=== PATIENT | male | born 1985 | race Caucasian/White ===

== ENCOUNTER 2017-11-10 19:34 | Emergency (ER) | payer SELFPAY ==
[2017-11-10 20:15] LABS: ADD MAN DIFF? NO
[2017-11-10 20:18] LABS: BASO % 1 % (0-3); EOS # 0.4 x10^3/uL (0.0-0.7); EOS % 7 % (0-3); HEMATOCRIT 43.4 % (39.0-53.0); HEMOGLOBIN 14.3 g/dL (13.0-17.5); LYMPH # 1.7 x10^3/uL (1.0-4.8); LYMPH % 29 % (24-48); MEAN CORPUSCULAR HEMOGLOBIN 30 pg (25-35); MEAN CORPUSCULAR HGB CONC 33 g/dL (31-37); MEAN CORPUSCULAR VOLUME 90 fL (79-100); MONO # 0.5 x10^3/uL (0.0-1.1); MONO % 8 % (0-9); NEUT # 3.3 x10^3uL (1.8-7.7); NEUT % 55 % (31-73); PLATELET COUNT 213 x10^3/uL (140-400); RED BLOOD COUNT 4.85 x10^6/uL (4.30-5.70); RED CELL DISTRIBUTION WIDTH 13.5 % (11.5-14.5)
[2017-11-10 20:30] LABS: ANION GAP 4 (6-14); BLOOD UREA NITROGEN 26 mg/dL (8-26); BUN/CREATININE RATIO 22 (6-20); CALCIUM 8.6 mg/dL (8.5-10.1); CARBON DIOXIDE 31 mmol/L (21-32); CHLORIDE 107 mmol/L (98-107); CREATININE 1.2 mg/dL (0.7-1.3); GFR 70.2; GLUCOSE 60 mg/dL (70-99); POTASSIUM 4.3 mmol/L (3.5-5.1); SODIUM 142 mmol/L (136-145)
[2017-11-10] MEDS: ONDANSETRON PF 4 MG/2 ML VIAL. IV (20:33)
[2017-11-10] MEDS: fentaNYL PF VIAL 100 MCG/2 ML VIAL IV ×2 (20:34→21:08)
[2017-11-10 20:35] LABS: ALBUMIN 3.4 g/dL (3.4-5.0); ALK PHOS 148 U/L (46-116); ALT (SGPT) 32 U/L (16-63); AST (SGOT) 29 U/L (15-37); LIPASE 177 U/L (73-393); TOTAL BILIRUBIN 0.4 mg/dL (0.2-1.0); TOTAL PROTEIN 6.9 g/dL (6.4-8.2)
[2017-11-10] MEDS ORDERED: CONTRAST GIVEN MC (20:45)
[2017-11-10] MEDS: IOHEXOL 300 MG/ML 100ML VIAL. IV (20:50)
[2017-11-10 20:57] LABS: BILIRUBIN,URINE NEGATIVE (NEG); CLARITY,URINE CLEAR; COLOR,URINE YELLOW; GLUCOSE,URINE NEGATIVE (NEG); NITRITE,URINE NEGATIVE (NEG); PROTEIN,URINE NEGATIVE (NEG-TRACE)
[2017-11-10 21:07] LABS: BACTERIA,URINE 0 /HPF (0-FEW); RBC,URINE TNTC /HPF (0-2)
[2017-11-10] MEDS: MORPHINE SULFATE 4 MG/ML DISP.SYRIN. IV (21:35)
== END 2017-11-10 22:06 | disposition home or self-care (01) ==
LOC: ER 19:34
DX: R10.13 Epigastric pain (principal); R31.9 Hematuria, unspecified; F41.9 Anxiety disorder, unspecified; F31.9 Bipolar disorder, unspecified; Z86.19 Personal history of other infectious and parasitic diseases; Z90.49 Acquired absence of other specified parts of digestive tract; Z88.5 Allergy status to narcotic agent
CPT/HCPCS: 36415; 74177; 80053; 81001; 83690; 85025; 87086; 96374; 96375; 96376; 99285-25; J2270; J2405; J3010; Q9967

== ENCOUNTER 2017-11-20 15:51 | Emergency (ER) | payer SELFPAY ==
[2017-11-20] MEDS: IV NORMAL SALINE 1000ML BAG 1,000 ML IV (16:55)
[2017-11-20] MEDS: PANTOPRAZOLE IV PUSH 40 MG VIAL. IVP (16:55)
[2017-11-20] MEDS: fentaNYL PF VIAL 100 MCG/2 ML VIAL IV (16:56)
[2017-11-20] MEDS: PROMETHAZINE 12.5 MG in IV NORMAL SALINE 50ML 50 ML IV (16:56)
[2017-11-20] MEDS: LIDO:MAALOX:DONNATAL 1:1:1 15 ML SINGLE DOSE SWSW (16:56)
[2017-11-20 17:07] LABS: ADD MAN DIFF? NO
[2017-11-20 17:11] LABS: BASO # 0.1 x10^3/uL (0.0-0.2); BASO % 2 % (0-3); EOS # 0.5 x10^3/uL (0.0-0.7); EOS % 8 % (0-3); HEMATOCRIT 44.3 % (39.0-53.0); LYMPH # 1.9 x10^3/uL (1.0-4.8); LYMPH % 27 % (24-48); MEAN CORPUSCULAR HEMOGLOBIN 30 pg (25-35); MEAN CORPUSCULAR HGB CONC 34 g/dL (31-37); MEAN CORPUSCULAR VOLUME 89 fL (79-100); MONO # 0.5 x10^3/uL (0.0-1.1); MONO % 7 % (0-9); NEUT # 4.1 x10^3uL (1.8-7.7); NEUT % 57 % (31-73); PLATELET COUNT 271 x10^3/uL (140-400); RED CELL DISTRIBUTION WIDTH 13.8 % (11.5-14.5); WHITE BLOOD COUNT 7.2 x10^3/uL (4.0-11.0)
[2017-11-20 17:20] LABS: ANION GAP 11 (6-14); BLOOD UREA NITROGEN 29 mg/dL (8-26); BUN/CREATININE RATIO 26 (6-20); CARBON DIOXIDE 25 mmol/L (21-32); CHLORIDE 106 mmol/L (98-107); CREATININE 1.1 mg/dL (0.7-1.3); GFR 77.6; GLUCOSE 125 mg/dL (70-99); POTASSIUM 3.9 mmol/L (3.5-5.1); SODIUM 142 mmol/L (136-145)
[2017-11-20 17:27] LABS: ALBUMIN 3.8 g/dL (3.4-5.0); ALBUMIN/GLOBULIN RATIO 1.2 (1.0-1.7); ALK PHOS 167 U/L (46-116); ALT (SGPT) 38 U/L (16-63); AST (SGOT) 24 U/L (15-37); LIPASE 256 U/L (73-393); TOTAL BILIRUBIN 0.1 mg/dL (0.2-1.0)
[2017-11-20] MEDS: FAMOTIDINE 20 MG TABLET. PO (18:11)
[2017-11-20] MEDS: HYDROcodone/APAP 5/325MG 1 TAB TABLET PO (18:29)
== END 2017-11-20 18:33 | disposition home or self-care (01) ==
LOC: ER 15:51
DX: R10.13 Epigastric pain (principal); R11.2 Nausea with vomiting, unspecified; F41.9 Anxiety disorder, unspecified; F31.9 Bipolar disorder, unspecified; Z86.19 Personal history of other infectious and parasitic diseases; Z90.49 Acquired absence of other specified parts of digestive tract; Z88.5 Allergy status to narcotic agent
CPT/HCPCS: 36415; 80053; 83690; 85025; 96365; 96375; 99284-25; C9113; J2550; J3010; J7030

== ENCOUNTER 2017-11-29 18:29 | Emergency (ER) | payer SELFPAY ==
[2017-11-29] MEDS ORDERED: KETOROLAC 30 MG/ML INJ. (19:22)
[2017-11-29] MEDS ORDERED: ONDANSETRON PF 4 MG/2 ML VIAL. (19:22)
[2017-11-29] MEDS: ONDANSETRON PF 4 MG/2 ML VIAL. IV (19:24)
[2017-11-29] MEDS: IV NORMAL SALINE 1000ML BAG 1,000 ML IV (19:24)
[2017-11-29] MEDS: KETOROLAC 30 MG/ML INJ. IV (19:24)
[2017-11-29 19:26] LABS: ADD MAN DIFF? NO
[2017-11-29 19:28] LABS: BASO # 0.1 x10^3/uL (0.0-0.2); BASO % 2 % (0-3); EOS # 0.4 x10^3/uL (0.0-0.7); EOS % 6 % (0-3); HEMATOCRIT 42.8 % (39.0-53.0); HEMOGLOBIN 14.6 g/dL (13.0-17.5); LYMPH # 1.9 x10^3/uL (1.0-4.8); LYMPH % 33 % (24-48); MEAN CORPUSCULAR HEMOGLOBIN 30 pg (25-35); MEAN CORPUSCULAR HGB CONC 34 g/dL (31-37); MEAN CORPUSCULAR VOLUME 89 fL (79-100); MONO # 0.7 x10^3/uL (0.0-1.1); MONO % 11 % (0-9); NEUT # 2.9 x10^3uL (1.8-7.7); NEUT % 48 % (31-73); PLATELET COUNT 323 x10^3/uL (140-400); RED BLOOD COUNT 4.82 x10^6/uL (4.30-5.70)
[2017-11-29 19:29] LABS: BILIRUBIN,URINE SMALL (NEG); CLARITY,URINE CLEAR; COLOR,URINE YELLOW; GLUCOSE,URINE NEGATIVE (NEG); NITRITE,URINE NEGATIVE (NEG); PROTEIN,URINE NEGATIVE (NEG-TRACE)
[2017-11-29 19:35] LABS: RBC,URINE 0 /HPF (0-2)
[2017-11-29 19:36] LABS: ANION GAP 7 (6-14); BACTERIA,URINE MODERATE /HPF (0-FEW); BLOOD UREA NITROGEN 24 mg/dL (8-26); BUN/CREATININE RATIO 22 (6-20); CALCIUM 8.9 mg/dL (8.5-10.1); CARBON DIOXIDE 28 mmol/L (21-32); CHLORIDE 107 mmol/L (98-107); CREATININE 1.1 mg/dL (0.7-1.3); GFR 77.6; GLUCOSE 99 mg/dL (70-99); POTASSIUM 3.9 mmol/L (3.5-5.1); SODIUM 142 mmol/L (136-145); SQUAMOUS EPITHELIAL CELL,UR FEW /LPF
[2017-11-29 19:42] LABS: ALBUMIN 3.8 g/dL (3.4-5.0); ALBUMIN/GLOBULIN RATIO 1.1 (1.0-1.7); ALK PHOS 141 U/L (46-116); ALT (SGPT) 41 U/L (16-63); AST (SGOT) 24 U/L (15-37); LIPASE 261 U/L (73-393); TOTAL BILIRUBIN 0.4 mg/dL (0.2-1.0); TOTAL PROTEIN 7.3 g/dL (6.4-8.2)
[2017-11-29] MEDS ORDERED: fentaNYL PF VIAL 100 MCG/2 ML VIAL (19:49)
[2017-11-29 19:51] LABS: BARBITURATES NEG (NEG); BENZODIAZEPINES NEG (NEG); CANNABINOIDS NEG (NEG); COCAINE NEG (NEG); METHADONE NEG (NEG); OPIATES NEG (NEG); PHENCYCLIDINE NEG (NEG)
[2017-11-29 19:52] LABS: AMPHETAMINE/METHAMPHETAMINE POS (NEG); ETHANOL, URINE NEG (NEG)
[2017-11-29] MEDS: fentaNYL PF VIAL 100 MCG/2 ML VIAL IV ×2 (19:52→20:42)
== END 2017-11-29 20:52 | disposition home or self-care (01) ==
LOC: ER 18:29
DX: R10.13 Epigastric pain (principal); N39.0 Urinary tract infection, site not specified; F41.9 Anxiety disorder, unspecified; F31.9 Bipolar disorder, unspecified; Z90.49 Acquired absence of other specified parts of digestive tract; Z86.19 Personal history of other infectious and parasitic diseases; Z88.5 Allergy status to narcotic agent
CPT/HCPCS: 36415; 80053; 80307; 81001; 83690; 85025; 87086; 87491; 87591; 96361; 96374; 96375; 96376; 99284-25; J1885; J2405; J3010; J7030

== ENCOUNTER 2018-01-02 22:15 | Emergency (ER) | payer SELFPAY | END 2018-01-02 22:50 | disposition home or self-care (01) | LOC: ER 22:15 | DX: K02.9 Dental caries, unspecified (principal); F41.9 Anxiety disorder, unspecified; F31.89 Other bipolar disorder; Z90.49 Acquired absence of other specified parts of digestive tract; Z88.5 Allergy status to narcotic agent | CPT/HCPCS: 99283 ==

== ENCOUNTER 2018-04-11 15:14 | Emergency (ER) | payer SELFPAY ==
[2018-04-11] MEDS: ONDANSETRON ODT 4 MG TAB.RAPDIS. PO (17:33)
[2018-04-11] MEDS: LIDO:MAALOX 1:1 20 ML SINGLE DOSE. SWSW (17:47)
[2018-04-11 17:50] LABS: ADD MAN DIFF? NO
[2018-04-11 17:54] LABS: BASO # 0.1 x10^3/uL (0.0-0.2); BASO % 1 % (0-3); EOS # 0.3 x10^3/uL (0.0-0.7); EOS % 5 % (0-3); HEMATOCRIT 38.8 % (39.0-53.0); HEMOGLOBIN 12.9 g/dL (13.0-17.5); LYMPH # 1.6 x10^3/uL (1.0-4.8); LYMPH % 24 % (24-48); MEAN CORPUSCULAR HEMOGLOBIN 28 pg (25-35); MEAN CORPUSCULAR HGB CONC 33 g/dL (31-37); MEAN CORPUSCULAR VOLUME 84 fL (79-100); MONO # 0.7 x10^3/uL (0.0-1.1); MONO % 11 % (0-9); NEUT # 3.8 x10^3uL (1.8-7.7); NEUT % 59 % (31-73); PLATELET COUNT 278 x10^3/uL (140-400); RED BLOOD COUNT 4.61 x10^6/uL (4.30-5.70); RED CELL DISTRIBUTION WIDTH 14.1 % (11.5-14.5); WHITE BLOOD COUNT 6.5 x10^3/uL (4.0-11.0)
[2018-04-11 18:04] LABS: ANION GAP 11 (6-14); BLOOD UREA NITROGEN 22 mg/dL (8-26); BUN/CREATININE RATIO 17 (6-20); CALCIUM 8.8 mg/dL (8.5-10.1); CARBON DIOXIDE 27 mmol/L (21-32); CHLORIDE 101 mmol/L (98-107); CREATININE 1.3 mg/dL (0.7-1.3); GFR 63.6; GLUCOSE 149 mg/dL (70-99); POTASSIUM 3.5 mmol/L (3.5-5.1); SODIUM 139 mmol/L (136-145)
[2018-04-11 18:13] LABS: ALBUMIN 3.9 g/dL (3.4-5.0); ALBUMIN/GLOBULIN RATIO 1.1 (1.0-1.7); ALK PHOS 124 U/L (46-116); ALT (SGPT) 33 U/L (16-63); AST (SGOT) 30 U/L (15-37); LIPASE 149 U/L (73-393); TOTAL BILIRUBIN 0.5 mg/dL (0.2-1.0); TOTAL PROTEIN 7.4 g/dL (6.4-8.2)
== END 2018-04-11 18:37 | disposition home or self-care (01) ==
LOC: ER 15:14
DX: R10.13 Epigastric pain (principal); R11.10 Vomiting, unspecified; E86.0 Dehydration; F41.9 Anxiety disorder, unspecified; F31.9 Bipolar disorder, unspecified; Z90.49 Acquired absence of other specified parts of digestive tract; Z90.89 Acquired absence of other organs; Z88.5 Allergy status to narcotic agent
CPT/HCPCS: 36415; 80053; 83690; 85025; 99284; Q0162